=== PATIENT | male | born 1965 | race Caucasian/White ===

== ENCOUNTER 2021-03-24 07:33 | Emergency (ER) | payer BC ==
[~2021-03-24] VITALS: Ht 172.7 cm; Wt 86.2 kg
--- NOTE | 2021-03-24 07:50 | NUR ---
"Abdominal Pain started this am- I think I have kidney stones." Patient a/ox4, breathing even and unlabored, no sob noted, needs attended. Kept comfortable.
[2021-03-24] MEDS ORDERED: KETOROLAC TROMETHAMINE INJ 30 MG/ML VIAL ONE (07:57)
[2021-03-24] MEDS ORDERED: ONDANSETRON HCL/PF 4 MG/2 ML VIAL ONE (07:57)
[2021-03-24] MEDS ORDERED: HYDROMORPHONE 1 MG/1 ML DISP.SYRIN ONE (07:58)
[2021-03-24] MEDS ORDERED: HYDROMORPHONE INJ 2 MG/ML DISP.SYRIN IV ONE (08:00)
[2021-03-24] MEDS ORDERED: ONDANSETRON HCL/PF 4 MG/2 ML VIAL IVP ONE (08:00)
[2021-03-24] MEDS ORDERED: KETOROLAC TROMETHAMINE INJ 30 MG/ML VIAL IV ONE (08:00)
[2021-03-24] MEDS ORDERED: IV NS 0.9% 1,000 ML BAG IV ONE (08:00)
--- NOTE | 2021-03-24 08:05 | NUR ---
IV LINE ESTABLISHED, BLOOD DRAWN, URINE OBTAINED AND SPECIMENS SENT TO LAB.
[2021-03-24 08:21] LABS: BASOPHILS % (AUTO) 0.2 % (0.0-2.0); EOSINOPHILS % (AUTO) 0.6 % (0.0-6.0); HEMATOCRIT 46 % (39-51); HEMOGLOBIN 14.6 g/dL (13.5-17.5); LYMPHOCYTES # (AUTO) 0.6 K/uL (0.8-4.8); LYMPHOCYTES % (AUTO) 4.1 % (20.0-44.0); MEAN CORPUSCULAR HGB CONC 32 g/dl (31.0-36.0); MEAN CORPUSCULAR VOLUME 75 fL (80-96); MONOCYTES # (AUTO) 0.5 K/uL (0.1-1.30); MONOCYTES % (AUTO) 3.1 % (2.0-12.0); NEUTROPHILS # (AUTO) 13.4 K/uL (1.8-8.9); PLATELET COUNT (AUTO) 210 K/uL (150-450); RED BLOOD CELL COUNT(AUTO) 6.11 MIL/uL (4.5-6.0); WHITE BLOOD COUNT (AUTO) 14.6 K/uL (4.3-11.0)
[2021-03-24 08:27] LABS: BILIRUBIN,URINE NEGATIVE (NEGATIVE); COLOR,URINE YELLOW (YELLOW); LEUKOCYTE ESTERASE ,URINE NEGATIVE (NEGATIVE); NITRITE, URINE NEGATIVE (NEGATIVE); PROTEIN,URINE TRACE mg/dl (NEGATIVE); UGLUCOSE NEGATIVE (NEGATIVE); UROBILINOGEN,URINE 0.2 EU/dL (0.2)
[2021-03-24 08:40] LABS: CREATININE 1.3 mg/dL (0.6-1.3); POTASSIUM 4.7 mmol/L (3.5-5.1)
[2021-03-24 08:45] LABS: ALBUMIN 4.2 g/dL (3.4-5.0); BILIRUBIN,DIRECT 0.1 mg/dL (0.0-0.2); BILIRUBIN,TOTAL 0.3 mg/dL (0.2-1.0); TOTAL PROTEIN, SERUM 8.2 g/dL (6.4-8.2)
--- NOTE | 2021-03-24 08:53 | NUR ---
PATIENT'S PAIN IMPROVED. DR. FIERRO AT BEDSIDE.
[2021-03-24] MEDS ORDERED: HYDR-3972 PO (08:58)
[2021-03-24] MEDS ORDERED: IBUP-1957 PO (08:58)
[2021-03-24] MEDS ORDERED: TAMS-12 PO (08:58)
[2021-03-24] MEDS ORDERED: POLY119P2 PO (08:58)
[2021-03-24 09:05] LABS: RBC,URINE 51-80 /HPF (0-2)
[2021-03-24 09:06] LABS: BACTERIA,URINE Few /HPF (None Seen); SQUAMOUS EPITHELIAL CELL,UR Rare /HPF (None Seen); WBC,URINE 0-2 /HPF (0-3)
[2021-03-24 09:18] VITALS: BP 138/71
--- NOTE | 2021-03-24 09:18 | NUR ---
PATIENT A/OX4, BREATHING EVEN AND UNLABORED, NO SOB NOTED, NEEDS ATTENDED, PAIN IMPROVED. AMBULATORY WITH STEADY GAIT. IV removed. Catheter intact and site benign. Pressure and 4x4 applied to site. No bleeding noted. Patient discharged to home in stable condition. Written and verbal after care instructions given. Patient verbalizes understanding of instruction.
== END 2021-03-24 09:19 | disposition home or self-care (01) ==
LOC: ER 07:57
DX: N23 Unspecified renal colic (principal); N20.1 Calculus of ureter; K59.00 Constipation, unspecified; R11.2 Nausea with vomiting, unspecified
CPT/HCPCS: 36415; 74176; 80048; 80076; 81001; 83690; 85025; 96361; 96374; 96375; 99284; J1170; J1885; J2405; J7030

== ENCOUNTER 2021-04-05 13:02 | Emergency (ER) | payer BC ==
[~2021-04-05] VITALS: Ht 177.8 cm; Wt 83.9 kg
[~2021-04-05 13:02] MED LIST: HYDR-3972 PO; IBUP-1957 PO; POLY119P2 PO; TAMS-12 PO
--- NOTE | 2021-04-05 13:06 | NUR ---
BIBSELF C/O MID ABDOMINAL PAIN X 3 DAYS. THE PATIENT RATES PAIN 8/10. ABDOMEN SOFT AND NON-DISTENDED. THE PATIENT ALSO STATES FEELING NAUSEOUS. DENIES SOB. RESPIRATION REGULAR AND UNLABORED. ATTACHED TO THE MONITOR. WILL CONTINUE TO MONITOR THE PATIENT.
--- NOTE | 2021-04-05 13:13 | NUR ---
DR KUMAR AT THE BEDSIDE
--- NOTE | 2021-04-05 13:30 | NUR ---
URINE COLLECTED AND SENT TO THE LAB
[2021-04-05 13:43] LABS: BILIRUBIN,URINE Negative (NEGATIVE); COLOR,URINE YELLOW (YELLOW); LEUKOCYTE ESTERASE ,URINE Negative (NEGATIVE); NITRITE, URINE Negative (NEGATIVE); PROTEIN,URINE Negative (NEGATIVE); UGLUCOSE Negative (NEGATIVE); UROBILINOGEN,URINE 0.2 EU/dL (0.2)
[2021-04-05 13:48] LABS: BACTERIA,URINE Few /HPF (None Seen); RBC,URINE 0-2 /HPF (0-2); WBC,URINE 0-2 /HPF (0-3)
[2021-04-05 13:49] LABS: SQUAMOUS EPITHELIAL CELL,UR None Seen /HPF (None Seen)
[2021-04-05] MEDS ORDERED: TAMS-12 PO (13:56)
--- NOTE | 2021-04-05 14:05 | NUR ---
PATIENT A/OX4, BREATHING EVEN AND UNLABORED, NO SOB NOTED. DENIES PAIN AT THIS TIME. Patient discharged to home in stable condition. Written and verbal after care instructions given. Patient verbalizes understanding of instruction.
[2021-04-05 14:07] VITALS: BP 135/92
== END 2021-04-05 14:07 | disposition home or self-care (01) ==
LOC: ER 13:05
DX: N23 Unspecified renal colic (principal); N20.1 Calculus of ureter; Z79.899 Other long term (current) drug therapy
CPT/HCPCS: 81001

== ENCOUNTER 2021-10-16 17:34 | Emergency (ER) | payer BC ==
[~2021-10-16] VITALS: Ht 177.8 cm; Wt 84.4 kg
--- NOTE | 2021-10-16 18:03 | NUR ---
BIBS FOR C/O R EYE DISCOMFORT, "FOGGY" SINCE YESTERDAY WORST TODAY. DENIES PAIN. WILL CONTINUE TO MONITOR THE PATIENT.
[2021-10-16] MEDS ORDERED: FLUORESCEIN SODIUM OPHTH 1 EA STRIP ONE (18:14)
[2021-10-16 18:33] VITALS: BP 127/76
--- NOTE | 2021-10-16 18:33 | NUR ---
Patient does not wish to proceed with medical care recommended by Dr. Hawk. Patient given information related to possible complications, up to and including , which could occur as a result of leaving the hospital at this time. Patient verbalizes understanding of risks involved due to leaving against medical advice. Patient has signed AMA form.
== END 2021-10-16 18:34 | disposition left against medical advice (07) ==
LOC: ER 17:35
DX: H43.391 Other vitreous opacities, right eye (principal); Z87.442 Personal history of urinary calculi; Z79.1 Long term (current) use of non-steroidal anti-inflammatories (NSAID); Z79.891 Long term (current) use of opiate analgesic; Z79.899 Other long term (current) drug therapy

== ENCOUNTER 2021-11-23 01:55 | Emergency (ER) | payer BC ==
[~2021-11-23] VITALS: Ht 177.8 cm; Wt 86.2 kg
--- NOTE | 2021-11-23 02:15 | NUR ---
PATIENT BIBS C/O LEFT RIB PAIN S/P GLF OFF LADDER. PATIENT REPORTS PAIN 9/10, PAIN GETS WORSE UPON MOVEMENT. PATIENT CONNECTED TO BESIDE MONITOR. ON ROOM AIR, BREATHING EVEN AND UNLABORED, O2 SAT 95%. WILL CONTINUE TO MONITOR.
[2021-11-23] MEDS ORDERED: HYDROCODONE/APAP 5/325MG TABLET ONE (02:17)
--- NOTE | 2021-11-23 02:20 | NUR ---
PATIENT SENT TO CT SCAN
[2021-11-23] MEDS ORDERED: HYDROCODONE/APAP 5/325MG TABLET PO ONE (02:30)
--- NOTE | 2021-11-23 02:35 | NUR ---
PT RETURNED TO ER BED [address]
[2021-11-23] MEDS ORDERED: HYDR-4303 PO ×2 (04:12→04:30)
--- NOTE | 2021-11-23 04:34 | NUR ---
Patient discharged to home in stable condition. Written and verbal after care instructions given. Patient verbalizes understanding of instruction. Pt. ambulatory with a steady gait. IV removed. Catheter intact and site benign. Pressure and 4x4 applied to site. No bleeding noted.
[2021-11-23 05:19] VITALS: BP 140/85
== END 2021-11-23 04:34 | disposition home or self-care (01) ==
LOC: ER 02:01
DX: S22.32XA Fracture of one rib, left side, initial encounter for closed fracture (principal); S33.5XXA Sprain of ligaments of lumbar spine, initial encounter; F17.210 Nicotine dependence, cigarettes, uncomplicated; Z79.899 Other long term (current) drug therapy; W11.XXXA Fall on and from ladder, initial encounter; Y93.89 Activity, other specified; Y92.89 Other specified places as the place of occurrence of the external cause; Y99.8 Other external cause status
CPT/HCPCS: 71100-TC; 72131-TC

== ENCOUNTER → 2025-02-17 | Emergency (ER) | payer BC ==
[~2025-02-17] VITALS: Ht 177.8 cm; Wt 89.4 kg
[~2025-02-17] MED LIST changes: +HYDR-4303 PO; +KETOROLAC TROMETHAMINE 15 MG/ML VIAL ONE; +MORPHINE SULFATE INJ 4 MG/ML DISP.SYRIN ONE; +ONDA4TAB5 PO; +ONDANSETRON HCL/PF 4 MG/2 ML VIAL ONE
[2025-02-17] MEDS: IV NS 0.9% 1,000 ML BAG IV ONE (21:29)
[2025-02-17] MEDS: MORPHINE SULFATE INJ 2 MG/ML DISP.SYRIN IV ONE (21:37)
[2025-02-17] MEDS: ONDANSETRON HCL/PF 4 MG/2 ML VIAL IVP ONE (21:37)
[2025-02-17] MEDS: KETOROLAC TROMETHAMINE 15 MG/ML VIAL IV ONE (21:37)
[2025-02-17 21:40] LABS: PLATELET COUNT (AUTO) 177 K/uL (150-450); RED BLOOD CELL COUNT(AUTO) 6.16 MIL/uL (4.5-6.0); RED CELL DISTRIBUTION WIDTH 14.2 % (11.5-15.0); WHITE BLOOD COUNT (AUTO) 6.9 K/uL (4.3-11.0)
[2025-02-17 21:51] LABS: APPEARANCE,URINE SLIGHTLY CLOUDY (CLEAR); BLOOD, URINE 3+ Ery/uL (NEGATIVE); LEUKOCYTE ESTERASE ,URINE NEGATIVE (NEGATIVE); NITRITE, URINE NEGATIVE (NEGATIVE); UGLUCOSE NEGATIVE (NEGATIVE)
[2025-02-17 22:00] LABS: ADD URINE CULTURE NO; CALCIUM OXALATE CRYSTALS,UR Few /HPF (None Seen); URINE AMORPHOUS URATE Moderate /HPF (None Seen)
[2025-02-17 22:02] LABS: CALCIUM, SERUM 8.8 mg/dL (8.5-10.1); CREATININE 1.0 mg/dL (0.6-1.3); SODIUM SERUM 138.0 mmol/L (136-145); UREA NITROGEN, BLOOD 12.0 mg/dL (7-18)
[2025-02-17 22:12] LABS: ASPARTATE AMINOTRANSFERASE 14.0 U/L (15-37); TOTAL PROTEIN, SERUM 7.5 g/dL (6.4-8.2)
[2025-02-17 22:52] VITALS: BP 126/81; TEMP 98; O2SAT 98
== END | disposition home or self-care (01) ==
LOC: ER 20:53
DX: N20.2 Calculus of kidney with calculus of ureter (principal); Z79.1 Long term (current) use of non-steroidal anti-inflammatories (NSAID); Z79.899 Other long term (current) drug therapy
CPT/HCPCS: 99285; 74176; 96374; 96375; 96361; 85025; 80048; 87086; 83690; 80076; 81001; 36415; J1885; J2270; J2405; J7030

== ENCOUNTER 2025-03-14 12:23 | Emergency (ER) | payer BC ==
[~2025-03-14] VITALS: Ht 177.8 cm; Wt 81.6 kg
[~2025-03-14 12:23] MED LIST changes: -KETOROLAC TROMETHAMINE 15 MG/ML VIAL ONE; -MORPHINE SULFATE INJ 4 MG/ML DISP.SYRIN ONE; -ONDANSETRON HCL/PF 4 MG/2 ML VIAL ONE
[2025-03-14 12:29] VITALS: TEMP 98
[2025-03-14] MEDS ORDERED: KETOROLAC TROMETHAMINE 15 MG/ML VIAL ONE (12:45)
[2025-03-14] MEDS: KETOROLAC TROMETHAMINE 15 MG/ML VIAL IV ONE (13:00)
[2025-03-14] MEDS: IV NS 0.9% 1,000 ML BAG IV ONE (13:00)
[2025-03-14 13:01] LABS: PLATELET COUNT (AUTO) 177 K/uL (150-450); RED BLOOD CELL COUNT(AUTO) 5.97 MIL/uL (4.5-6.0); RED CELL DISTRIBUTION WIDTH 14.1 % (11.5-15.0); WHITE BLOOD COUNT (AUTO) 6.8 K/uL (4.3-11.0)
[2025-03-14 13:11] LABS: CALCIUM, SERUM 9.1 mg/dL (8.5-10.1); CREATININE 1.1 mg/dL (0.6-1.3); SODIUM SERUM 140.0 mmol/L (136-145); UREA NITROGEN, BLOOD 10.0 mg/dL (7-18)
[2025-03-14 13:11] LABS: APPEARANCE,URINE CLEAR (CLEAR); BLOOD, URINE 2+ Ery/uL (NEGATIVE); LEUKOCYTE ESTERASE ,URINE NEGATIVE (NEGATIVE); NITRITE, URINE NEGATIVE (NEGATIVE); UGLUCOSE NEGATIVE (NEGATIVE)
[2025-03-14 13:17] LABS: ASPARTATE AMINOTRANSFERASE 16.0 U/L (15-37); TOTAL PROTEIN, SERUM 7.6 g/dL (6.4-8.2)
[2025-03-14 13:22] LABS: ADD URINE CULTURE NO; SQUAMOUS EPITHELIAL CELL,UR Rare /HPF (None Seen)
[2025-03-14] MEDS ORDERED: TAMS-12 PO (14:01)
[2025-03-14] MEDS ORDERED: NAPR-1164 PO (14:01)
[2025-03-14 14:12] VITALS: BP 134/80; O2SAT 98
== END 2025-03-14 14:13 | disposition home or self-care (01) ==
LOC: ER 12:29
DX: G89.29 Other chronic pain (principal); R10.9 Unspecified abdominal pain; M54.41 Lumbago with sciatica, right side; N13.2 Hydronephrosis with renal and ureteral calculous obstruction; Z79.1 Long term (current) use of non-steroidal anti-inflammatories (NSAID)
CPT/HCPCS: 99285; 74176; 96374; 96361; 85025; 80048; 87086; 83690; 80076; 81001; 36415; J1885; J7030

== ENCOUNTER 2025-04-14 14:17 | Emergency (ER) | payer BC ==
[~2025-04-14] VITALS: Ht 170.2 cm; Wt 74.8 kg
[~2025-04-14 14:17] MED LIST changes: +NAPR-1164 PO
[2025-04-14] MEDS ORDERED: HYDROMORPHONE INJ 2 MG/ML DISP.SYRIN IV ONE (15:00)
[2025-04-14] MEDS: KETOROLAC TROMETHAMINE 15 MG/ML VIAL IV ONE (15:00)
[2025-04-14] MEDS: IV NS 0.9% 500 ML BAG IV ONE (15:00)
[2025-04-14] MEDS ORDERED: ONDANSETRON HCL/PF 4 MG/2 ML VIAL IVP ONE (15:00)
[2025-04-14] MEDS ORDERED: KETOROLAC TROMETHAMINE 15 MG/ML VIAL ONE (15:22)
[2025-04-14] MEDS ORDERED: ESCI20TA PO (15:31)
[2025-04-14] MEDS ORDERED: TAMS-12 PO (15:31)
[2025-04-14 15:40] LABS: PLATELET COUNT (AUTO) 186 K/uL (150-450); RED BLOOD CELL COUNT(AUTO) 6.46 MIL/uL (4.5-6.0); RED CELL DISTRIBUTION WIDTH 14.3 % (11.5-15.0); WHITE BLOOD COUNT (AUTO) 12.3 K/uL (4.3-11.0)
[2025-04-14 15:53] LABS: CALCIUM, SERUM 8.9 mg/dL (8.5-10.1); CREATININE 1.1 mg/dL (0.6-1.3); SODIUM SERUM 137.0 mmol/L (136-145); UREA NITROGEN, BLOOD 15.0 mg/dL (7-18)
[2025-04-14 16:24] LABS: BAND % (MANUAL) 1 % (0.0-5.0); LYMPHOCYTES % (MANUAL) 2 % (16-48); MONOCYTES % (MANUAL) 2 % (0-11.0); NEUTROPHILS % (MANUAL) 95 (42-76); PLATELET ESTIMATE ADEQUATE
[2025-04-14 16:26] LABS: BASOPHILS % (MANUAL) 0 % (0.0-2.0); EOSINOPHILS % (MANUAL) 0 % (0-4)
[2025-04-14 16:36] VITALS: BP 129/84; TEMP 97.8; O2SAT 99
== END 2025-04-14 16:36 | disposition home or self-care (01) ==
LOC: ER 14:22
DX: N13.2 Hydronephrosis with renal and ureteral calculous obstruction (principal); R10.9 Unspecified abdominal pain; K57.30 Diverticulosis of large intestine without perforation or abscess without bleeding; Z79.899 Other long term (current) drug therapy; Z87.441 Personal history of nephrotic syndrome
CPT/HCPCS: 99283; 96374; 96361; 85027; 80048; 85007; 36415; 87081; J1885